=== PATIENT | female | born 1990 | race American Indian/Alaskan Native ===

== ENCOUNTER 2024-04-03 12:17 | Emergency (ER) | payer OTHER, SELFPAY ==
[2024-04-03 12:22] VITALS: BP 126/88; PULSE 74; RESP 18; TEMP 36.1; O2SAT 100
[2024-04-03] MEDS: KETOROLAC 30 MG/ML VIAL (*BKC) IM (13:09)
[2024-04-03 14:00] LABS: Influenza A QL RT-PCR Negative (Negative); Influenza B QL RT-PCR Negative (Negative); RSV RNA, RT-PCR Negative (Negative); SARS-CoV-2 RNA PCR Negative (Negative)
--- NOTE | 2024-04-03 14:15 | PC.NURSE ---
Patient states she wants to leave and does not want to wait any longer. This RN told patient i could not give her a specific time that she would be discharge and I could have the MD come in room. Patient did not want to wait for that and signed out AMA at 1415.
--- NOTE | 2024-04-03 14:21 | ED.EXTPRO ---
HPI - Extremity Problem General Chief complaint: Extremity Problem,Nontraumatic Stated complaint: left wrist pain Time Seen by Provider: 04/03/24 12:25 History of Present Illness HPI Narrative: Patient is a 33-year-old female who presents ER with several complaints. First complaint is headache with ear fullness and sore throat. Ongoing over last 2 days. Associated with congestion and dry cough. No fevers or chills. Has aching going down into her shoulders. Patient also reports that she has been having pain to her left wrist over last couple weeks. She is currently about 1 month . Had not been having wrist issues prior to giving . No numbness or tingling. Pain can she had upper left arm towards her elbow at times. Patient using family to interpret and declined interpretive services. Related Data Allergies Allergy/AdvReac Type Severity Reaction Status Date / Time No Known Allergies Allergy Verified 04/03/24 12:34 Review of Systems Constitutional: Constitutional: Reports no additional constitutional complaints ENT: Reports system reviewed and no additional complaints, except as documented Cardiovascular: Cardiovascular: Reports no additional cardiovascular complaints Respiratory: Respiratory: Reports no additional respiratory complaints Gastrointestinal: Gastrointestinal: Reports no additional gastrointestinal complaints [facility] Past Medical History Medical History (Updated 04/03/24 @ 21:37 by Pavel Del Rosario MD) Healthy female adult Surgical History Surgical History (Updated 04/03/24 @ 21:37 by Pavel Del Rosario MD) No pertinent past surgical history Exam Narrative: GENERAL: Well-appearing, well-nourished, and in no acute distress. HEAD: Normocephalic, atraumatic. ENT: Mucous membranes moist. Mild pharyngitis without tonsillar hypertrophy or exudate. Uvula midline and nonedematous. TMs normal bilaterally. NECK: Supple. CHEST: Clear to auscultation. No respiratory distress. HEART: Regular rate and rhythm. Normal peripheral pulses. EXTREMITIES: Normal range of motion. No edema. Positive carpal tunnel compression test left wrist. NEURO: Alert and oriented x3. PSYCH: Normal mood and affect. Course Course Emergency Course: Educated about carpal tunnel syndrome. COVID/RSV/Flu ordered to rule evaluate cause of pharngitis. Toradol for pain. I was on a phone call regarding another patient when the nurse was contacted and patient decided to leave AMA because she felt better and did not want to speak to me again. Vital Signs Vital signs: Vital Signs Temperature 97.0 F L 04/03/24 12:22 Pulse Rate 74 04/03/24 12:22 Respiratory Rate 18 04/03/24 12:22 Blood Pressure 126/88 04/03/24 12:22 Pulse Oximetry 100 04/03/24 12:22 Oxygen Delivery Room Air 04/03/24 12:22 Temperature 97.0 F L 04/03/24 12:22 Pulse Rate 74 04/03/24 12:22 Respiratory Rate 18 04/03/24 12:22 Blood Pressure 126/88 04/03/24 12:22 Pulse Oximetry 100 04/03/24 12:22 Oxygen Delivery Room Air 04/03/24 12:22 MDM - Extremity (Nontraumatic) Lab Data Labs: Lab Results 04/03/24 Range/Units 13:15 Influenza A (RT-PCR) Negative (Negative) Influenza B (RT-PCR) Negative (Negative) RSV (RT-PCR) Negative (Negative) SARS-CoV-2 RNA (RT-PCR) Negative (Negative) Discharge Plan Discharge Clinical Impression: Headache, Carpal tunnel syndrome, Pharyngitis Patient Disposition: Left Against Medical Advice Condition: Stable Follow-up/Referrals: UNKNOWN,DOCTOR [Primary Care Provider] -
== END 2024-04-03 14:15 | disposition left against medical advice (07) ==
LOC: ANHED 13:01
PROVIDERS: Emergency Provider Emergency Medicine
DX: R51.9 Headache, unspecified (principal); J02.9 Acute pharyngitis, unspecified; G56.02 Carpal tunnel syndrome, left upper limb; Z20.822 Contact with and (suspected) exposure to COVID-19
CPT/HCPCS: 87637; 96372; 99283; J1885

== ENCOUNTER 2024-08-12 17:14 | Emergency (ER) | payer OTHER, SELFPAY ==
--- OUTSIDE RECORDS SUMMARY | 2024-08-12 17:16 | XMS_ITS | Data Portability ---
Author Organization [facility] , [facility] Address [address] [place] [address] Assessment No assessment recorded. Plan of Treatment Reminders Order Date Submit Date Provider Last Modified By Organization Details Last Modified Time Details Appointments None recorded. Lab culture, urine 2023 024 [employer] [facility], [address] [place], [address], 4 00:08:23 urinalysi s, dipstick 2023 024 [email or web address] [facility], [address] [place], [address], 4 14:08:35 test, urine 2023 024 [email or web address] [facility], [address] [place], [address], 4 14:08:35 culture, urine 2023 024 [employer] [facility], [address] [place], [address], 4 21:20:46 urinalysi s, dipstick 2023 024 [email or web address] [facility], [address] [place], [address], 4 15:28:16 streptoco ccus group B, culture, unspecifi ed specimen 2023 [place] [facility], [address] [facility], [place], [address], 4 09:48:10 glucose tolerance test, gestation al, 3-hour 2023 [facility], [address] [place] [address], [address], 4 11:10:54 Referral primary care provider referral - Female providers only 2023 [facility], [address] [place] [address], [place] [address], [place], [address], 4 14:59:21 Procedures None recorded. Surgeries None recorded. Imaging None recorded. Medication Orders Macrobid 100 mg capsule 2023 [place] [id number], [address] [place], [place], [id number], 4 15:36:04 Patient TargetsNo targets recorded. Patient InstructionsNo instructions recorded. Reason for Referral Primary Care Provider Referr al for Lumbar radiculopathy Female providers only Referring Physician: Anu Persaud, CORPORATE COUNSEL, Encounter Date: 02/24/2024 Results Created Date Observation Date Name Description Value Unit Range Abnormal Flag Note LastModifiedBy Organization Detail LastModifiedTime 09/22/19 24 09/21/2023 CULTU RE, URINE , ROUTI NE culture, urine, routine SEE NOTE CULTU RE, URINE , ROUTI NE Micro Numbe r: [id number] Test Statu s: Final Speci men Sourc e: Urine Speci men Quali ty: Adequ ate Resul t: No Growt h NO COLLE CTION DATE RECEI SLIM. WE HAVE USED THE DATE THE SPECI MEN WAS RECEI SLIM BY THIS LABOR ATORY THE COLLE CTION DATE. IF THIS IS INCOR RECT, PLEAS E CONTA CT CLIEN T SERVI SERAFIN. PHONE NUMBE R: [phone] [phone] [phone] Not Available [employer] [facility] [address] [address], [place], [address], 09/22/2023 00:19:51 10/04/19 24 10/06/2023 (50G) 1HR - GLUCO SE WANDY ANCE TEST, GESTA PANTERA L SCREE N glucose (50g) 1 hour 183 mg/dL <135 high Not Available [facility] [address], [address], 10/06/2023 11:14:39 10/04/19 24 10/06/2023 CBC (INCL UDES DIFF/ PLT) WBC 8.2 thous and/u L 4.0 - 9.8 normal Not Available [address], [address], 10/06/2023 11:46:06 10/04/19 24 10/06/2023 CBC (INCL UDES DIFF/ PLT) RBC 3.9 mehrdad on/uL 3.9 - 4.9 normal Not Available [address], [address], 10/06/2023 11:46:06 10/04/19 24 10/06/2023 CBC (INCL UDES DIFF/ PLT) hemoglobin 11.8 g/dL 11.8 - 14.8 normal Not Available [address], [address], 10/06/2023 11:46:06 10/04/19 24 10/06/2023 CBC (INCL UDES DIFF/ PLT) hematocrit 36.3 % 35.5 - 44.0 normal Not Available [address], [address], 10/06/2023 11:46:06 10/04/19 24 10/06/2023 CBC (INCL UDES DIFF/ PLT) MCV 92.1 fL 82.0 - 99.0 normal Not Available [address], [address], 10/06/2023 11:46:06 10/04/19 24 10/06/2023 CBC (INCL UDES DIFF/ PLT) MCH 29.9 pg 27.2 - 32.6 normal Not Available [address], [address], 10/06/2023 11:46:06 10/04/19 24 10/06/2023 CBC (INCL UDES DIFF/ PLT) MCHC 32.5 g/dL 31.5 - 35.5 normal Not Available [address], [address], 10/06/2023 11:46:06 10/04/19 24 10/06/2023 CBC (INCL UDES DIFF/ PLT) RDW-CV 13.5 % 11.5 - 14.5 normal Not Available [address], [address], 10/06/2023 11:46:06 10/04/19 24 10/06/2023 CBC (INCL UDES DIFF/ PLT) platelet 246 thous and/u L 140 - 350 normal Not Available [address], [address], 10/06/2023 11:46:06 10/04/19 24 10/06/2023 CBC (INCL UDES DIFF/ PLT) MPV 11.7 fL 9.3 - 12.4 normal Not Available [address], [address], 10/06/2023 11:46:06 10/04/19 24 10/06/2023 CBC (INCL UDES DIFF/ PLT) absolute neutrophil 6.28 thous and/u L 1.90 - 7.00 normal Not Available [address], [address], 10/06/2023 11:46:06 10/04/19 24 10/06/2023 CBC (INCL UDES DIFF/ PLT) absolute lymphocyte 1.42 thous and/u L 0.70 - 4.50 normal Not Available [address], [address], 10/06/2023 11:46:06 10/04/19 24 10/06/2023 CBC (INCL UDES DIFF/ PLT) absolute monocyte 0.21 thous and/u L 0.10 - 1.30 normal Not Available [address], [address], 10/06/2023 11:46:06 10/04/19 24 10/06/2023 CBC (INCL UDES DIFF/ PLT) absolute eosinophil 0.12 thous and/u L <0.70 normal Not Available [address], [address], 10/06/2023 11:46:06 10/04/19 24 10/06/2023 CBC (INCL UDES DIFF/ PLT) absolute basophil 0.12 thous and/u L <0.20 normal Not Available [address], [address], 10/06/2023 11:46:06 10/04/19 24 10/06/2023 CBC (INCL UDES DIFF/ PLT) absolute immature granulocyte 0.03 thous and/u L <0.03 normal Not Available [address], [address], 10/06/2023 11:46:06 10/04/19 24 10/06/2023 OB 28W (SYPH HIV 1/2 Ag/Ab Non-Re active non-re active normal Not Available [address], [address], 10/06/2023 12:43:04 10/04/19 24 10/06/2023 OB 28W (SYPH syphilis Ab Non-Re active non-re active normal Not Available [address], [address], 10/06/2023 12:43:04 10/19/19 24 10/20/2023 (100G ) 3HR - GLUCO SE WANDY ANCE TEST, GESTA PANTERA L SCREE N glucose (100g) fasting 88 mg/dL 74 - 106 normal Not Available [employer] [address] [place] [address], [address], 10/20/2023 11:10:54 10/19/19 24 10/20/2023 (100G ) 3HR - GLUCO SE WANDY ANCE TEST, GESTA PANTERA L SCREE N glucose (100g) 1 hour 193 mg/dL <180 high Not Available [facility] [address] [place] [address], [address], 10/20/2023 11:10:54 10/19/19 24 10/20/2023 (100G ) 3HR - GLUCO SE WANDY ANCE TEST, GESTA PANTERA L SCREE N glucose (100g) 2 hour 152 mg/dL <155 normal Not Available [facility] and [address], [address], 10/20/2023 11:10:54 10/19/19 24 10/20/2023 (100G ) 3HR - GLUCO SE WANDY ANCE TEST, GESTA PANTERA L SCREE N glucose (100g) 3 hour 98 mg/dL <140 normal Not Available [facility] and [address], [address], 10/20/2023 11:10:54 11/29/19 24 12/02/2023 STREP TOCOC CUS, GROUP B CULTU RE streptococcu s, group B culture SEE NOTE STREP TOCOC CUS, GROUP B CULTU RE Micro Numbe r: [id number] Test Statu s: Final Speci men Sourc e: Vagin al/an orect al Speci men Quali ty: Adequ ate Resul t: No group B Strep tococ cus isola jeane Note per CDC guide lines optim al recov laura is achie slim by swabb ing both the lower vagin a and rectu m (thro ugh the anal sphin cter) . Not Available [employer] [facility] [address] [place], [address], 12/02/2023 09:48:10 12/08/19 24 12/09/2023 CULTU RE, URINE , ROUTI NE culture, urine, routine SEE NOTE CULTU RE, URINE , ROUTI NE Micro Numbe r: [id number] Test Statu s: Final Speci men Sourc e: Urine Speci men Quali ty: Adequ ate Resul t: No Growt h Not Available [facility] [address] [place], [address], 12/09/2023 21:20:46 12/08/19 24 12/08/2023 urina lysis , dipst ick Leukocytes Trace Not Available [address], [address], 12/08/2023 14:18:15 12/08/19 24 12/08/2023 urina lysis , dipst ick Nitrite negati ve Not Available [address], [place], [address], 12/08/2023 14:18:15 12/08/19 24 12/08/2023 urina lysis , dipst ick Urobilinogen .2 Not Available [address], [address], 12/08/2023 14:18:15 12/08/19 24 12/08/2023 urina lysis , dipst ick Protein Trace Not Available [address], [address], 12/08/2023 14:18:15 12/08/19 24 12/08/2023 urina lysis , dipst ick pH 5.0 Not Available [address], [address], 12/08/2023 14:18:15 12/08/19 24 12/08/2023 urina lysis , dipst ick Blood Modera te Not Available [address], [place], [address], 12/08/2023 14:18:15 12/08/19 24 12/08/2023 urina lysis , dipst ick Specific [place] 1.030 Not Available [place] [address], [place], [address], 12/08/2023 14:18:15 12/08/19 24 12/08/2023 urina lysis , dipst ick Ketone Modera te Not Available [address], [place], [address], 12/08/2023 14:18:15 12/08/19 24 12/08/2023 urina lysis , dipst ick Bilirubin Negati ve Not Available [address], [place], [address], 12/08/2023 14:18:15 12/08/19 24 12/08/2023 urina lysis , dipst ick Glucose Negati ve Not Available [address], [place], [address], 12/08/2023 14:18:15 12/08/19 24 12/08/2023 urina lysis , dipst ick Appearance Slight ly Cloudy Not Available [address], [place], [address], 12/08/2023 14:18:15 12/08/19 24 12/08/2023 urina lysis , dipst ick Color Yellow Not Available [address], [place], [address], 12/08/2023 14:18:15 02/24/20 24 02/25/2024 CULTU RE, URINE , ROUTI NE culture, urine, routine SEE NOTE CULTU RE, URINE , ROUTI NE Micro Numbe r: [id number] Test Statu s: Final Speci men Sourc e: Urine Speci men Quali ty: Adequ ate Resul t: Less than 10,00 0 CFU/m L of singl e Gram posit mark organ ism isola jeane. No furth er testi ng will be perfo rmed. If clini judy indic ated, recol lecti on using a metho d to minim ize conta minat ion, with promp t trans lizzette to Urine Cultu re Trans port Tube, is recom lius d. Not Available [facility] [address] [place], [address], 02/26/2024 00:08:22 02/24/20 24 02/24/2024 pregn hilda test, urine HCG negati ve Not Available [address], [address], 02/24/2024 12:32:59 02/24/2002/24/2024 urina lysis , dipst ick Leukocytes Trace Not Available [address], [address], 02/24/2024 12:33:10 02/24/20 24 02/24/2024 urina lysis , dipst ick Nitrite negati ve Not Available [address], [address], 02/24/2024 12:33:10 02/24/20 24 02/24/2024 urina lysis , dipst ick Protein Negati ve Not Available [address], [address], 02/24/2024 12:33:10 02/24/20 24 02/24/2024 urina lysis , dipst ick pH 5.0 Not Available [address], [place], [address], 02/24/2024 12:33:10 02/24/20 24 02/24/2024 urina lysis , dipst ick Blood Large Not Available [place] [address], [place], [address], 02/24/2024 12:33:10 02/24/20 24 02/24/2024 urina lysis , dipst ick Specific [place] 1.025 Not Available [place] [address], [place], [address], 02/24/2024 12:33:10 02/24/20 24 02/24/2024 urina lysis , dipst ick Ketone Negati ve Not Available [address], [place], [address], 02/24/2024 12:33:10 02/24/20 24 02/24/2024 urina lysis , dipst ick Bilirubin Negati ve Not Available [address], [place], [address], 02/24/2024 12:33:10 02/24/20 24 02/24/2024 urina lysis , dipst ick Glucose Negati ve Not Available [place] [address], [place], [address], 02/24/2024 12:33:10 02/24/20 24 02/24/2024 urina lysis , dipst ick Appearance Clear Not Available [place] [address], [place], [address], 02/24/2024 12:33:10 02/24/20 24 02/24/2024 urina lysis , dipst ick Color Dark Yellow Not Available [facility] [address] [place], [address], 02/24/2024 12:33:10 Result Notes None recorded. Problems Name Problem SNOMED Code Status Onset Date Resolution Date Notes Provider Name and Address Organization Details Recorded Time 70140372 Completed 024 02/24/2024 Pamela Martinezjamee winslow, [facility] 12:11:47 Problem Notes None recorded. Medical Equipment None Reported. Allergies No known drug allergies Medications Name Sig Start Date Stop Date Status Note LastModified by Organization Details LastModified Time acetaminophe n 325 mg tablet Take 2 tablets every 6 hours by oral route as needed. 10/31 completed Not Available Not Available Not Available cefadroxil 500 mg capsule TAKE 2 CAPSULE TWICE DAILY FOR 7 DAYS 07/28 completed Not Available Not Available Not Available zolpidem 5 mg tablet 02/23 completed Not Available Not Available Not Available ibuprofen 600 mg tablet 02/23 completed Not Available Not Available Not Available ondansetron 4 mg disintegrati ng tablet TAKE 1 TABLET BY MOUTH EVERY 8 HOURS NEEDED 07/28 completed Not Available Not Available Not Available oxycodone 5 mg tablet 02/23 completed Not Available Not Available Not Available cyclobenzapr ine 5 mg tablet 02/23 completed Not Available Not Available Not Available nitrofuranto in monohydrate/ macrocrystal s 100 mg capsule TAKE 1 CAPSULE BY MOUTH EVERY 12 HOURS FOR 5 DAYS active Not Available Not Available No t Available 28 mg iron-800 mcg tablet TAKE 1 TABLET BY MOUTH EVERY DAY 02/23 completed Not Available Not Available Not Available Vitals Date Recorded Body height Body mass index (BMI) Body temperature Systolic blood pressure Diastolic blood pressure Provider Name and Address Organization Details Last Updated DateTime 170.18 cm 24.5 kg/m2 97.4 [degF] 100 mm[Hg] 70 mm[Hg] Laura Muñoz [facility] 4 10:35:40 Date Recorded Body weight Provider Name an d Address Organization Details Last Updated DateTime 10/18/2023 83674.206146 g Viki Germain, [facility] [address] [place], [address], [place] [facility] 10/18/2023 10:53:06 Date Recorded Body height Body mass index (BMI) Body temperature Systolic blood pressure Diastolic blood pressure Provider Name and Address Organization Details Last Updated DateTime 4 170.18 cm 24.6 kg/m2 97.6 [degF] 122 mm[Hg] 72 mm[Hg] Laura Muñoz [place] - [facility] 4 16:15:04 Date Recorded Body weight Provider Name an d Address Organization Details Last Updated DateTime 11/01/2023 72994.157930 g Viki Germain, [facility] [address] [place], [address], [place] - [facility] 11/01/2023 16:46:47 Date Recorded Body height Body mass index (BMI) Body weight Body temperature Systolic blood pressure Diastolic blood pressure Provider Name and Address Organization Details Last Updated DateTime 4 170.18 cm 25.2 kg/m2 71698.9 3 g 97.4 [degF] 118 mm[Hg] 70 mm[Hg] Laura Muñoz [place] [facility] 4 15:31:58 Date Recorded Body height Body mass index (BMI) Body weight Body temperature Systolic blood pressure Diastolic blood pressure Provider Name and Address Organization Details Last Updated DateTime 4 170.18 cm 25.7 kg/m2 65431.4 3 g 97.3 [degF] 122 mm[Hg] 70 mm[Hg] Laura Muñoz [place] - [facility] 4 13:55:12 Date Recorded Body height Body mass index (BMI) Body weight Systolic blood pressure Diastolic blood pressure Provider Name and Address Organization Details Last Updated DateTime 02/24/2024 170.18 cm 24.1 kg/m2 41813.2 2 g 104 mm[Hg] 64 mm[Hg] Pamela Aly [place] [facility] 12:16:33 Social History Question Answer Notes LastModified by Organizat ion Details LastModified Time Tobacco Smoking Status Never Smoker Nelda Hauser null, [facility] 07/28/2023 11:35:34 What Is Your Level Of Alcohol Consumption? None [email or web address] Information not available 07/28/2023 If You Are , What Was Your Level Of Alcohol Consumption Prior To ? None Information not available 07/28/2023 Are You Blind Or Do You Have Difficulty Seeing? No [email or web address] Information not available 07/28/2023 Are You Currently Employed? No [email or web address] Information not available 07/28/2023 Are You Deaf Or Do You Have Serious Difficulty Hearing? No [email or web address] Information not available 07/28/2023 What Type Of Diet Are You Following? REGULAR Information not available 07/28/2023 What Is The Highest Grade Or Level Of School You Have Completed Or The Highest Degree You Have Received? AU41441-7 [email or web address] Information not available 07/28/2023 How Many Children Do You Have? 4 [email or web address] Information not available 02/24/2024 What Is Your Relationship Status? Information not available 07/28/2023 Are You Sexually Active? Yes [email or web address] Information not available 07/28/2023 Do You Use Any Illicit Or Recreational Drugs? No [email or web address] Information not available 07/28/2023 Do You Or Have You Ever Used Any Other Forms Of Tobacco Or Nicotine? No [email or web address] Information not available 07/28/2023 Sex: Female Functional Status Question Answer Note LastModified by Organization D etails LastModified Time What is your exercise level? None [email or web address] Information not available 07/28/2023 Mental Status None recorded. Family History Relationship Description Onset Age of this Age Resolved Age Notes LastModified by Organization Details LastModified Time Father No current problems or disability [email or web address] Not available 07/28 11:34:51 Mother No current problems or disability [email or web address] Not available 07/28 11:34:51 Medical History Condition Response Other Cancer N High Blood Pressure N Colon Cancer N Cytomegalovirus N Hyperthyroidism N Breast Cancer N Herpes (HSV) N MRSA N Blood Transfusion N Lung Cancer N Hypothyroidism N Depression N Incontinence N Panic Attacks N Neurological Disorder N Deep Vein Thrombosis N Anxiety Disorder N Autoimmune disease N Arthritis N Tuberculosis/Positive PPD N Shingles N Polycystic Ovarian Syndrome N Cervical Cancer N Hematuria N Chlamydia N Varicosities N Stroke N Crohn's Disease N Seasonal allergies N Alzheimer's/Dementia N COPD/Emphysema N HPV/Genital Warts N Endometriosis N IBS (Irritable Bowel Syndrome) N History of Abnormal Pap N High Cholesterol N Liver Disease N Fibromyalgia N Kidney Infection N Ulcer N Kidney Disease N HIV N Gallbladder disease N Von Willebrand disease N Sickle Cell Disease/Trait N ADD/ADHD N Eating Disorder N Diabetes Mellitus (non-insulin dependent ) N Anemia N Ovarian Problems N Multiple Sclerosis N Gonorrhea N Frequent Urinary Tract infections N Osteopenia N Headaches/migraines N GERD (reflux) N Ovarian Cancer N Diabetes (insulin dependent) N Seizures/Epilepsy N Fibroids N Asthma N Heart Attack N Endometrial Cancer N Lupus N Rubella N Blood Clotting Disorder N Bipolar Disorder N Diabetes Mellitus (during ) N Ulcerative Colitis N Hepatitis N Heart Disease N Pulmonary Embolism N RPR N Chicken Pox N Osteoporosis N Gynecological History Statement/Question Response Flow Moderate Date of last HPV Date of LMP 02/20/2024 HPV Vaccine N Duration of Flow (days) 7 Most Recent Mammogram Current Control Method None Age at Menarche 12 Date of Last Colonoscopy Most Recent Bone Density Date of Last Pap Smear Obstetrics History GPAL:G 4 P 4 0 0 4 Type Value Full Term 4 Living 4 Total 4 Past Encounters Encounter ID Performer Location Encounter Start Date Encounter Closed Date Diagnosis/Indication Diagnosis SNOMED-CT Code Diagnosis ICD10 Code Diagnosis Note [id number] PHOEBE PIPER [facility] [address] [place] [address] 07/28/2023 10:58:39 07/28/2023 17:13:59 Missed period 64816613 N92.5 Pt comes in today for a New/First OB visit. Does not speak honduran, interpreto r used-Speak s ArabicGest ation: 18w 5dEDD: 12/24/2023 -- PMH: No PMH--Patie nt seen at [facility] 05/18 and was noted to be 10 weeks and note in chart stated [place] being [place]. -- Medication s: Taking daily PNV, not taking any other medication s--Previou s OB History: Vaginal deliveries - Denies complicati ons delivered in [place]. States she usually goes 3 weeks early.-- Mom/Sister s with hx of Pre-Eclamp noelle:Denies -- Genetic Questions in OB Episode Done-- Accepts [facility]. Would like to know gender. Discussed logging on to the [facility] portal to find Gender Results--A ccepts AFP-- PAP doesn't know and does not want today --BMI at Confirmati on: 22.8 POC-- NOB labs done today-- Accepts [facility]--AFP today-- PAP will be needed PP-- Pre-Pregna ncy BMI: 22.8-- RTC 4 weeks, will need anatomy Guide: Given and reviewed. Toxoplasmo sis precaution s reviewed. Reviewed office visit schedule during . Reviewed Quickening and normal FHTs. Routine an tenatal care 875604461 Z34.01 Z34.81 O09.511 O09.521 screening 2437 13785 Z36.0 Carrier de tection, molecular genetics 6708789 Z14.8 [id number] KIYA SANDERS DO [facility] [address] [place] [address] 08/23/2023 14:38:20 08/23/2023 15:51:26 screening for malformation 967336869 Z36.3 Routine an tenatal care 919918497 Z34.92 [id number] KIYA SANDERS DO [facility] [address] [place] [address] 09/20/2023 14:59:11 09/20/2023 16:38:03 Routine care 105340158 Z34.92 IUP @ 26+ wks. US: . No OB complaints . EPDS neg. RTO 2 wks, discussed rotating practition ers. Gestation period, 26 weeks 98855443 Z3A.26 [id number] [facility] [address] [place] [address] 10/04/2023 12:11:10 10/04/2023 13:38:43 screening 171384900 Z36.89 Gestation period, 28 weeks 87263771 Z3A.28 Normal pre gnancy in multigravida 9538961179 01561 Z34.83 Low back pain 169757979 M54.50 [id number] Viki [facility] [address] [place] [address] 10/18/2023 10:28:59 10/18/2023 13:00:34 Normal in multigravida 7590000642 85254 Z34.83 Gestation period, 30 weeks 30363573 Z3A.30 Glucose to lerance test during - baby not yet delivered outside reference range 572054167 O99.184 [id number] [facility] [address] [place] [address] 11/01/2023 16:04:15 11/01/2023 17:36:37 Normal in multigravida 1890752400 44707 Z34.83 Gestation period, 32 weeks 9706379 Z3A.32 Additional diagnosis detail: 32 weeks gestation of [id number] [facility] [address] [place] [address] 11/29/2023 15:23:49 11/29/2023 16:14:03 Normal in multigravida 9096577697 24848 Z34.83 Gestation period, 36 weeks 08014880 Z3A.36 Additional diagnosis detail: 36 weeks gestation of Patient en counter status 307219737 Z36.85 Additional diagnosis detail: screening for streptococ cus B [id number] [facility] [address] [place] [address] 12/08/2023 13:50:04 12/08/2023 15:51:10 Normal in multigravida 1056174692 13613 Z34.83 Gestation period, 37 weeks 65943810 Z3A.37 Additional diagnosis detail: 37 weeks gestation of Pain in pelvis 58907999 R10.2 Additional diagnosis detail: Pelvic pain [id number] PHOEBE PIPER [facility] [address] [facility] [place] [address] 02/24/2024 11:56:30 02/25/2024 12:22:23 Contraceptive use education 16605807 Z30.09 Pt comes in for Contracept mark Counseling . -- Discussed options including OCPs, NuvaRing, Nexplanon, hormonal and copper IUDs. Discussed risks, efficacy, non contracept mark benefits, and side effects of each option, including risk of VTE with hormonal contracept ion and uterine perforatio n, expulsion, infection with IUD.--Disc ussed that contracept ion will not protect against STI's. Encourged Condom use. Discussed the various types of Infections and STIs, related symptoms and the potential consequenc es (including effects on fertility) of STI. Reviewed ways to limit exposure and prevention techniques .-- UPT in office today:-- Pt would like to proceed with Paragard, consent signed--2 samples of Nextstelli s given until Paragard IUD can be inserted Dysuria 07074162 R30.0 Pt comes in today with complaints /concern for UTI. S/S:Pain or burning while urinatingF requent urinationF eeling the need to urinate despite having an empty bladderBlo emma urinePress ure or cramping in the groin or lower abdomen POCSure SwabUrine [employer] sent Lumbar radiculopathy 128 091560 M54.16 Health Concerns Section Related Observation LastModified by Organization Detai ls LastModified Time None Recorded Concern Status LastModified by Organization Details LastModified Time None Recorded Advance Directives Directive None Recorded Payers Encounter Date Sequence Insurance Name Policy Number Policy Sweeney Covered Member ID Sweeney Member ID Guarantor Name 10/18/2023 1 [facility] ILONEX Mckeon Z Jaber [id number] Haley Jackson Eltayyeb 11/01/2023 1 [facility]ON[facility] Cmkeon Z Jaber [id number] Haley Jackson Eltayyeb 11/29/2023 1 [facility] Mckeon Z Jaber [id number] Haley Jackson Eltayyeb 12/08/2023 1 [facility] Mckeon Z Jaber [id number] Haley Jackson Eltayyeb 02/24/2024 1 [place] [employer] Haley Jackson Eltayyeb [id number] Haley Manuel Pryoryyeb Notes Date Note Type Note Provider Name and Address Organization Details Recorded Time 10/18/2023 text/html OB ProblemReport ed bypatient.Associated Symptoms:no abdominal pain; no cramping; no contractions; normal movement; no bleeding; no ROM; no vaginal discharge; no vaginal/vulvar itching or irritation; no edema; no visual changes; no headache; no dizziness; no breathlessness Viki Germain CNM [address] [place] [address], [phone], [facility] Care Team Connect 10/18/2023 10:54:18 11/01/2023 text/html OB ProblemReport ed bypatient.Associated Symptoms:no abdominal pain; no cramping; no contractions; normal movement; no bleeding; no ROM; no vaginal discharge; no vaginal/vulvar itching or irritation; no edema; no visual changes; no headache; no dizziness; no breathlessness Viki Germain CNM [address] [place] [address], [phone], [facility] Care Team Connect IV 11/01/2023 16:47:02 11/29/2023 text/html OB ProblemReport ed bypatient.Associated Symptoms:no abdominal pain; no cramping; no contractions; normal movement; no bleeding; no ROM; no vaginal discharge; no vaginal/vulvar itching or irritation; no edema; no visual changes; no headache; no dizziness; no breathlessness Viki Germain CNM [address] [place] [address], [phone], [facility] Care Team Connect IV 11/29/2023 16:06:28 12/08/2023 text/html OB ProblemReport ed bypatient.Associated Symptoms:no abdominal pain; no cramping; no contractions; normal movement; no bleeding; no ROM; no vaginal discharge; no vaginal/vulvar itching or irritation; no edema; no visual changes; no headache; no dizziness; no breathlessness Viki Germain CNM [address] [place] [address], [phone], [facility] Care Team Connect IV 12/08/2023 16:13:19 02/24/2024 text/html Patient comes in today to discuss IUD. Patient delivered in 12/19 and continues to have pain where her epidural was placed. She did not come in for her 2 week or 6 week post visit but states she is doing well otherwise. ANU PERSAUD, MANUFACTURING OPERATOR [address] [place], [phone], [facility] [employer] [facility] 02/24/2024 15:38:18 OBGyn Episode Ob Episode Information Episode Created Date Number of Fetuses Patient Bloodtype Patient rh Status Prepregnancy Weight lbs Domestic Partner Domestic Partner Phone Father Name International Logistics Manager Status 07/28/19 24 1 A Positive CLOSED Fetus Data First Name Last Name Admitted to NICU Weight (g) Sex Living Outcome Pediatric Complications Fetus ID Race Codes Race Delivery Type false 3373.59 05 F Full Term [id number] Jose Calculation Initial Jose Date Initial Exam Date Initial Exam Provider Initial Ultrasound Date Last Menstrual Period Date Ultra Sound Weeks Gestation 12/24/2023 07/28/2023 03/19/2023 0 Eighteen To Twenty Week Jose Update Ultra Sound Date Fundal Height At Umbil Quickening Date Ultra Sound Latest Weeks Gestation Final Jose Confirmed By Final Jose Confirmed Date Final Jose Date Ultra Sound Latest Days Gestation 0 [email or web address] 07/28/2023 12/24/19 24 0 Pre-maegan Flowsheet Flowsheet Date 07/28/2023 Cadet Score Blood Edema Fundus Height Fundus Units Glucose Ketones Leukocytes Nitrite Labor Signs Protein Cervic Dilation Cervic Effacement Cervic Station none none Type Weight in lbs Pre/Post Dialysis Refused With clothes 145.258712200154 BP Diastolic BP Location Tested BP Systolic BP Type 80 L arm 120 sitting Fetus Heart Rate Present A 139 Present Fetus Movement A Yes Comments Confirmation visit, patient is 18 week today. NOB, unity and AFP collected today. Unsure of last pap, needs PP. Patient speaks Faroese. Physician Scribe used. Has had 3 vaginal deliveries in [place]. Denies any complications with pregnancies, states she does deliver 3 weeks early. Will RTC in 4 weeks and will get anatomy at that visit. Flowsheet Date 08/23/2023 Cadet Score Blood Edema Fundus Height Fundus Units Glucose Ketones Leukocytes Nitrite Labor Signs Protein Cervic Dilation Cervic Effacement Cervic Station Type Weight in lbs Pre/Post Dialysis Refused BP Diastolic BP Location Tested BP Systolic BP Type Fetus Heart Rate Present A 141 Fetus Movement Comments anatomy complete. rto in 4 w eeks Flowsheet Date 09/20/2023 Cadet Score Blood Edema Fundus Height Fundus Units Glucose Ketones Leukocytes Nitrite Labor Signs Protein Cervic Dilation Cervic Effacement Cervic Station none neg Type Weight in lbs Pre/Post Dialysis Refused With clothes 150.482022470660 BP Diastolic BP Location Tested BP Systolic BP Type 78 R arm 122 sitting Fetus Heart Rate Present A 150 Fetus Movement Comments no ob complaints. RTO in 2 w eeks for 3T labs Flowsheet Date 10/04/2023 Cadet Score Blood Edema Fundus Height Fundus Units Glucose Ketones Leukocytes Nitrite Labor Signs Protein Cervic Dilation Cervic Effacement Cervic Station none 28 cm Type Weight in lbs Pre/Post Dialysis Refused Weight 149.475283354816 BP Diastolic BP Location Tested BP Systolic BP Type 64 100 Fetus Heart Rate Present A 122 Fetus Movement A Yes Comments Third trimester labs today. Tdap recommendations given. Patient is experiencing leg cramps. Discussed increasing fluid intake, discussed diet recommendations, magnesium supplements, and calcium. Instructed to go to ER with redness or warmth. Belly band ordered today for pelvic pressure. PTL/PIH recommendations given. Flowsheet Date 10/18/2023 Cadet Score Blood Edema Fundus Height Fundus Units Glucose Ketones Leukocytes Nitrite Labor Signs Protein Cervic Dilation Cervic Effacement Cervic Station none 29 cm Type Weight in lbs Pre/Post Dialysis Refused Weight 156.098104767006 BP Diastolic BP Location Tested BP Systolic BP Type 70 100 Fetus Heart Rate Present A 140 Fetus Movement A Yes Comments Failed 1 hour. Returning mandy peacock for fasting 3 hour gtt. Complains of sciatic pain. Stretches demonstrated. PTL/PIH precautions reviewed. Flowsheet Date 11/01/2023 Cadet Score Blood Edema Fundus Height Fundus Units Glucose Ketones Leukocytes Nitrite Labor Signs Protein Cervic Dilation Cervic Effacement Cervic Station none 33 cm Type Weight in lbs Pre/Post Dialysis Refused Weight 156.35501148351 BP Diastolic BP Location Tested BP Systolic BP Type 72 122 Fetus Heart Rate Present A 145 Fetus Movement A Yes Comments Passed 1 hour, again complai ns of sciatica. Stretches reinforced. Encouraged supportive shoes and pants. Declines PT referral. PTL/PIH precautions reviewed. Flowsheet Date 11/29/2023 Cadet Score Blood Edema Fundus Height Fundus Units Glucose Ketones Leukocytes Nitrite Labor Signs Protein Cervic Dilation Cervic Effacement Cervic Station none 36 cm Type Weight in lbs Pre/Post Dialysis Refused Weight 160.652642748980 BP Diastolic BP Location Tested BP Systolic BP Type 70 118 Fetus Heart Rate Present A 150 Fetus Movement A Yes Comments Visit completed with michael nuñez. Complains of back pain, pelvic pain, and pain with urination. Right CVA tenderness noted. To L&D for evaluation. Verbalizes understanding. Flowsheet Date 12/08/2023 Cadet Score Blood Edema Fundus Height Fundus Units Glucose Ketones Leukocytes Nitrite Labor Signs Protein Cervic Dilation Cervic Effacement Cervic Station none 37 cm Type Weight in lbs Pre/Post Dialysis Refused Weight 163.233084856296 BP Diastolic BP Location Tested BP Systolic BP Type 70 122 Fetus Heart Rate Present A 136 Fetus Movement A Yes Comments GBS negative. Complains of p ain with urination and low back pain. Was evaluated at L&D last week and found to be wnl. Urine culture today. IOL scheduled for 12/18 at 2200 at [facility]. Labor/PIH precautions reviewd. Flowsheet Date 02/24/2024 Cadet Score Blood Edema Fundus Height Fundus Units Glucose Ketones Leukocytes Nitrite Labor Signs Protein Cervic Dilation Cervic Effacement Cervic Station Type Weight in lbs Pre/Post Dialysis Refused With clothes 154.36862676904 BP Diastolic BP Location Tested BP Systolic BP Type 64 104 sitting Fetus Heart Rate Present Fetus Movement Comments Menstrual History Last Menstrual Date Menses Monthly On Bcp Conception Prior Menses Frequency Hcg Plus Date Menarche Onset Age 0903/19/2023 Genetic Screening And Infection History Question Response Note Thalassemia (Maltese, Tamazight, Mediterranean, Or Background): MCV < 80 false Intellectual Disability/Autism false Personal or Family History of Congenital Heart D efect false History of Hepatitis false Muscular Dystrophy false Sickle Cell Disease Or Trait () false Patient Or Partner Has History Of Genital Herpes false Hemophilia Or Other Blood Disorders false Geovanna Disease false Patient's Age Will Be 35 Years Or Older At Estim ated Date of Delivery false If Yes, Agent(s) And Strength/Dosage false Medications (including Suppl ements, Vitamins, Herbs, OTC Drugs), Illicit/Recreational Drugs, Alcohol false Other Structural Defect false Recent Travel History Outside of Country false Maternal Metabolic Disorder (eg, Type 1 Diabetes , PKU) false Wale-Sachs (eg, Latter-Day, Cajun, Serbian-Solomon Islander) f alse Other Infection History false [place]'s Chorea false Cystic Fibrosis false Recurrent Loss, Or A Stillbirth false Rash Or Viral Illness Since Last Menstrual Perio d false Live With Someone With TB Or Exposed To TB false Mental Retardation/Autism false If Yes, Was Person Tested For Fragile X? false History of HIV false Any Other Genetic History false Hemoglobinopathy Or Carrier false Prior GBS-infected child false Down Syndrome false Other Inherited Genetic Or Chromosomal Disorder false Patient Or Baby's Father Had A Child With Defects Not Listed Above false Personal or Family History o f Neural Tube Defect (Meningomyelocele, Spina Bifida, Or Anencephaly) false History Of STD, Gonorrhea, Chlamydia, HPV, Syphi lis false Delivery Information Delivery Date Delivery Type Labor Anesthesia Weeks Gestation Incision Type Labor Labor Length Hrs Delivered By Post Complications Tubal Sterilization Discharge Date Comments 4 Sponta neous 38.6 Discharge Information Feeding Method Contraceptive Method Maternal HG B and HCT Levels Bottle Ob Episode Information Episode Created Date Number of Fetuses Patient Bloodtype Patient rh Status Prepregnancy Weight lbs Domestic Partner Domestic Partner Phone Father Name International Logistics Manager Status 09/20/19 24 1 CLOSED Fetus Data First Name Last Name Admitted to NICU Weight (g) Sex Living Outcome Pediatric Complications Fetus ID Race Codes Race Delivery Type 3175.14 4 M Full Term [id number] Jose Calculation Initial Jose Date Initial Exam Date Initial Exam Provider Initial Ultrasound Date Last Menstrual Period Date Ultra Sound Weeks Gestation 0 Eighteen To Twenty Week Jose Update Ultra Sound Date Fundal Height At Umbil Quickening Date Ultra Sound Latest Weeks Gestation Final Jose Confirmed By Final Jose Confirmed Date Final Jose Date Ultra Sound Latest Days Gestation 0 0 Menstrual History Last Menstrual Date Menses Monthly On Bcp Conception Prior Menses Frequency Hcg Plus Date Menarche Onset Age Delivery Information Delivery Date Delivery Type Labor Anesthesia Weeks Gestation Incision Type Labor Labor Length Hrs Delivered By Post Complications Tubal Sterilization Discharge Date Comments 0 38 Discharge Information Feeding Method Contraceptive Method Maternal HG B and HCT Levels Ob Episode Information Episode Created Date Number of Fetuses Patient Bloodtype Patient rh Status Prepregnancy Weight lbs Domestic Partner Domestic Partner Phone Father Name International Logistics Manager Status 09/20/19 24 1 CLOSED Fetus Data First Name Last Name Admitted to NICU Weight (g) Sex Living Outcome Pediatric Complications Fetus ID Race Codes Race Delivery Type 2976.47 0704 F Full Term Jose Calculation Initial Jose Date Initial Exam Date Initial Exam Provider Initial Ultrasound Date Last Menstrual Period Date Ultra Sound Weeks Gestation 0 Eighteen To Twenty Week Jose Update Ultra Sound Date Fundal Height At Umbil Quickening Date Ultra Sound Latest Weeks Gestation Final Jose Confirmed By Final Jose Confirmed Date Final Jose Date Ultra Sound Latest Days Gestation 0 0 Menstrual History Last Menstrual Date Menses Monthly On Bcp Conception Prior Menses Frequency Hcg Plus Date Menarche Onset Age Delivery Information Delivery Date Delivery Type Labor Anesthesia Weeks Gestation Incision Type Labor Labor Length Hrs Delivered By Post Complications Tubal Sterilization Discharge Date Comments 4 38 Discharge Information Feeding Method Contraceptive Method Maternal HG B and HCT Levels Ob Episode Information Episode Created Date Number of Fetuses Patient Bloodtype Patient rh Status Prepregnancy Weight lbs Domestic Partner Domestic Partner Phone Father Name International Logistics Manager Status 09/20/19 24 1 CLOSED Fetus Data First Name Last Name Admitted to NICU Weight (g) Sex Living Outcome Pediatric Complications Fetus ID Race Codes Race Delivery Type 3175.14 4 M Full Term [id number] Jose Calculation Initial Jose Date Initial Exam Date Initial Exam Provider Initial Ultrasound Date Last Menstrual Period Date Ultra Sound Weeks Gestation 0 Eighteen To Twenty Week Jose Update Ultra Sound Date Fundal Height At Umbil Quickening Date Ultra Sound Latest Weeks Gestation Final Jose Confirmed By Final Jose Confirmed Date Final Ojse Date Ultra Sound Latest Days Gestation 0 0 Menstrual History Last Menstrual Date Menses Monthly On Bcp Conception Prior Menses Frequency Hcg Plus Date Menarche Onset Age Delivery Information Delivery Date Delivery Type Labor Anesthesia Weeks Gestation Incision Type Labor Labor Length Hrs Delivered By Post Complications Tubal Sterilization Discharge Date Comments 6 39 Discharge Information Feeding Method Contraceptive Method Maternal HG B and HCT Levels
[2024-08-12 17:17] VITALS: PULSE 78; RESP 18; TEMP 36.7; O2SAT 100
--- OUTSIDE RECORDS SUMMARY | 2024-08-12 17:17 | XMS_ITS | Clinical Summary ---
Author Organization [facility] Address [facility] [place] [address] Care Team Providers Care Support Analyst Name Role Phone None, Provider MD Primary Care Provider Unavaila ble Allergies No known active allergies Medications VITAMINS 28-0.8 MG tablet Take 1 tablet by mouth daily. 10/19/2023 Active cyclobenzaprine (FLEXERIL) 5 MG tablet Take 1 tablet (5 mg total) by mouth 3 (three) times daily as needed for Muscle Spasms. 60 tablet 12/18/2023 Active oxyCODONE immediate release (ROXICODONE) 5 MG immediate release tabletIndicatio ns:Acute Pain < 3 Day Supply,Acute Pain < 7 Day Supply Take 1 tablet (5 mg total) by mouth every 6 (six) hours as needed for Pain. Indications: Acute Pain < 3 Day Supply, Acute Pain < 7 Day Supply 16 tablet 12/18/2023 Active zolpidem (AMBIEN) 5 MG tabletIndicatio ns:Vaginal delivery ([facility]) Take 1 tablet (5 mg total) by mouth nightly as needed for Sleep. 20 tablet 12/18/2023 Active Active Problems Problem Noted Date Diagnosed Date Vaginal delivery ([facility]) 12/18/2023 ([facility]) 12/16/2023 Social History Tobacco Use Types Packs/Day Years Used Date Smoking Tobacco: Never Smokeless Tobacco: Never Tobacco Cessation:Counseling Given: Not Answered Alcohol Use Standard Drinks/Week Comments Never 0 (1 standard drink = 0.6 oz pur e alcohol) Depression Answer Date Recor ded Last EPDS Total Score 0 12/18/2023 Last EPDS Self Harm Result Never 12/17 Comments No Sex and Gender Information Value Date Recorded Sex Assigned at Not on file Legal Sex Female 9:37 AM CDT Gender Identity Not on file Sexual Orientation Not on file Last Filed Vital Signs Vital Sign Reading Time Taken Comments Blood Pressure 129/86 12/17/2023 7:45 PM CDT Pulse 74 12/17/2023 7:45 PM CDT Temperature 36.5 C (97.7 F) 12/17/2023 7:45 PM CDT Respiratory Rate 16 12/17/2023 7:45 PM CDT Oxygen Saturation 99% 12/17/2023 7:45 PM CDT Inhaled Oxygen Concentration - - Weight 74.3 kg (163 lb 12.8 oz) 12/16/2023 5:15 AM CDT Height 170.2 cm (5' 7 ) 12/16/2023 5:15 AM CDT Body Mass Index 25.65 12/16/2023 5:15 AM CDT Plan of Treatment Health Maintenance Due Date Last Done Comments Cervical Cancer Screening Pa p Smear (Age 30 to 64) Every 3 Years 1989 Annual Physical 1992 Hepatitis C 08/30/2007 Hepatitis B Vaccines (1 of 3 - 19+ 3-dose series) 2008 Cervical Cancer Screening Pa p with HPV Testing (Age 30 to 64) Every 5 Years 08/30/2019 Cervical Cancer Screening with HPV 08/30/2019 COVID-19 Vaccine (2023-2 5 season) 2024 Influenza Adult (#1) 2024 DTaP, Tdap and Td Vaccines ( 2 - Td or Tdap) 03/03/2033 03/03/2023 HPV Vaccines Aged Out No longer eligi ble based on patient's age to complete this topic Meningococcal B Vaccine Aged Out No l onger eligible based on patient's age to complete this topic Meningococcal Vaccine Aged Out No jen meli eligible based on patient's age to complete this topic Pneumococcal Vaccine: Pediat rics (0 to 5 Years) and At-Risk Patients (6 to 64 Years) Aged Out No longer eligi ble based on patient's age to complete this topic RSV Immunizations Under 20 Months Aged Out No longer eligible based on patient's age to complete this topic Insurance MEDICAID Advance Directives * Full Code (Latest Code Status on File) Date Activated Date Inactivated Comments 12/16/2023 3:19 AM 12/18/2023 2:58 PM Care Teams Support Analyst Relationship Specialty Start Date End Date None, Provider, MD PCP - General UNKNOWN PHYSICIAN SPECIALTY 12/17/23
--- NOTE | 2024-08-12 17:21 | ECG_ITS ---
Test Date: 2024-08-12 17:26:35 Measurements Intervals [place] Rate: 75 P: 33 AR: 149 QRS: 68 QRSD: 105 T: 20 QT: 369 QTc: 414 Interpretive Statements SINUS RHYTHM INCOMPLETE RIGHT BUNDLE BRANCH BLOCK NONSPECIFIC ST-T WAVE ABNORMALITY- ANT/INF LEADS BASELINE ARTIFACT- I, II, AVR, AVL, V6 BORDERLINE ECG No previous ECG available for comparison Electronically Signed On 08-13-2024 08:22:38 ELEVATOR SERVICE MECHANIC by Severiano Emery D.O.
--- OUTSIDE RECORDS SUMMARY | 2024-08-12 19:26 | XMS_ITS | Clinical Summary ---
Author Organization [facility] Address [facility] [place] [address] Care Team Providers Care Finisher Accordion Name Role Phone None, Provider MD Primary [...] zolpidem (AMBIEN) 5 MG tabletIndicatio ns:Vaginal delivery ([facility]) Take 1 tablet (5 mg total) by mouth nightly as needed for Sleep. 20 tablet 12/18/2023 Active Active Problems Problem Noted Date Diagnosed Date Vaginal delivery ([facility]) 12/18/2023 ([facility]) 12/16/2023 Social History Tobacco Use Types Packs/Day [...] 3:19 AM 12/18/2023 2:58 PM Care Teams Finisher Accordion Relationship Specialty Start Date End Date None, Provider, MD PCP - General UNKNOWN PHYSICIAN SPECIALTY 12/17/23
--- NOTE | 2024-08-12 19:32 | ED.GENADULT ---
[facility] - General Adult General Chief complaint: Unspecified Stated complaint: neck, arm and back pain x a couple months. Time Seen by Provider: 08/12/24 19:20 Source: patient Mode of arrival: ambulatory Limitations: no limitations History of Present Illness HPI narrative: This is a 33-year-old female who presents to the ED for chief complaint of generalized upper back and neck pain intermittently over the past several months. Patient reports that at time she will get neck pain that radiates into the left upper extremity. Denies numbness, tingling or weakness of the extremities. Denies fevers, chills, nausea, vomiting. She has about 8 months . States she has been using icy Hot with minimal relief. No specific alleviating or exacerbating factors. Related Data Allergies Allergy/AdvReac Type Severity Reaction Status Date / Time No Known Allergies Allergy Verified 08/12/24 19:59 Review of Systems Review of Systems: All systems as dictated in [facility] Past Medical History Medical History (Updated 08/13/24 @ 00:00 by Rikki Thurston) Healthy female adult Surgical History Surgical History (Updated 04/03/24 @ 21:37 by Pavel Del Rosario MD) No pertinent past surgical history Exam Narrative: GENERAL: Well-appearing, well-nourished, and in no acute distress. HEAD: Normocephalic, atraumatic. EYES: PERRLA and EOMI. ENT: Nares clear, no rhinorrhea or epistaxis. Mucous membranes moist. Oropharynx without tonsillar hypertrophy exudate or other lesions. NECK: Supple. No adenopathy or masses. No signs of meningismus CHEST: No respiratory distress. Clear to auscultation. No wheezes rales or rhonchi HEART: Regular rate and rhythm. No murmur heard. Normal peripheral pulses. ABDOMEN: Soft, nontender, nondistended, normal active bowel sounds. MSK: Tenderness along the bilateral trapezius distribution in the upper back. No midline spinal tenderness throughout the spine. Ambulatory without assistance. 5/5 strength and sensation to the upper and lower extremities. SKIN: Warm, dry, no rash. NEURO: Alert and oriented x4. No focal deficits. PSYCH: Normal mood and affect. Course Vital Signs Vital signs: Vital Signs Temperature 98.1 F 08/12/24 17:17 Pulse Rate 78 08/12/24 17:17 Respiratory Rate 18 08/12/24 17:17 Pulse Oximetry 100 08/12/24 17:17 Oxygen Delivery Room Air 08/12/24 17:17 Temperature 98.1 F 08/12/24 17:17 Pulse Rate 69 08/12/24 20:02 Respiratory Rate 17 08/12/24 20:02 Blood Pressure 115/85 08/12/24 20:02 Pulse Oximetry 100 08/12/24 20:02 Oxygen Delivery Room Air 08/12/24 17:17 Medical Decision Making [facility] Narrative Medical decision making narrative: This is a 33-year-old female who presents to the ED for chief complaint of 1-2 months of back pain, neck pain. Vitals are normal. Exam remarkable for the above. She has tenderness along the trapezius muscle distribution. She has no neurologic deficits. Presentation consistent with muscle spasm versus strain. Patient will be given Rx for cyclobenzaprine and naproxen. Pt will be discharged in stable condition. Return precautions given and supportive measures discussed. Pt is understanding and agreeable with plan for discharge and follow-up with PCP. Vital Signs Vital Signs: Vital Signs Temperature 98.1 F 08/12/24 17:17 Pulse Rate 78 08/12/24 17:17 Respiratory Rate 18 08/12/24 17:17 Pulse Oximetry 100 08/12/24 17:17 Oxygen Delivery Room Air 08/12/24 17:17 Temperature 98.1 F 08/12/24 17:17 Pulse Rate 69 08/12/24 20:02 Respiratory Rate 17 08/12/24 20:02 Blood Pressure 115/85 08/12/24 20:02 Pulse Oximetry 100 08/12/24 20:02 Oxygen Delivery Room Air 08/12/24 17:17 Discharge Plan Discharge Clinical Impression: Cervical myofascial strain Patient Disposition: Home, Self-Care Condition: Stable Instructions: Antibiotic Form Additional Instructions: Your exam today shows likely muscular strain. Please take naproxen twice per day as well as cyclobenzaprine as needed at nighttime. He follow-up with PCP for this issue. If you have any new or worsening symptoms please return to the ER for further evaluation. Patient Language: [place] Citizen Prescriptions: New cyclobenzaprine 5 mg tablet 5 mg PO HS PRN (Reason: muscle spasm) Qty: 10 0RF naproxen 500 mg tablet 500 mg PO BID PRN (Reason: pain) Qty: 30 0RF Follow-up/Referrals: Janes Villa MD [Physician] - UNKNOWN,DOCTOR [Primary Care Provider] - Time of Disposition: 19:36
[2024-08-12] MEDS: CYCLOBENZAPRINE HCL 5 MG TABLET PO (19:59)
[2024-08-12] MEDS: IBUPROFEN 400 MG TABLET 800 MG PO (20:00)
[2024-08-12 20:02] VITALS: BP 115/85; PULSE 69; RESP 17; O2SAT 100
== END 2024-08-12 20:07 | disposition home or self-care (01) ==
PROVIDERS: Emergency Provider Physician Assistant
DX: S16.1XXA Strain of muscle, fascia and tendon at neck level, initial encounter (principal); I45.10 Unspecified right bundle-branch block; R94.31 Abnormal electrocardiogram [ECG] [EKG]; X58.XXXA Exposure to other specified factors, initial encounter
CPT/HCPCS: 93005; 99283; A9270